=== PATIENT | female | born 1945 | race Caucasian/White ===

== ENCOUNTER 2020-02-04 13:26 | Day surgery (SDC) | payer MEDICARE, OTHER ==
[2020-02-02 10:15] VITALS: BMI 31.2
[2020-02-04] MEDS ORDERED: PROPOFOL 20 ML ONE (14:24)
[2020-02-04] MEDS ORDERED: ROPIVACAINE HCL 0.5% 30ML VIAL ONE (14:50)
[2020-02-04] MEDS ORDERED: MIDAZOLAM HCL 2 MG/2 ML SINGLE DOSE VIAL ONE (14:50)
[2020-02-04] MEDS ORDERED: ceFAZolin SODIUM 1 GM VIAL ONE (15:31)
[2020-02-04] MEDS ORDERED: ONDANSETRON 4 MG/2 ML VIAL ONE (17:27)
[2020-02-04] MEDS ORDERED: ONDANSETRON 4 MG/2 ML VIAL IVPUSH PRN (17:38)
[2020-02-04] MEDS ORDERED: oxyCODONE HCL 5 MG TABLET PO PRN (17:38)
[2020-02-04 17:59] VITALS: TEMP 97.6
[2020-02-04 18:33] VITALS: BP 116/67; PULSE 74
== END 2020-02-04 18:33 | disposition home or self-care (01) ==
LOC: FASU 13:26
PROVIDERS: ATTEND Orthopaedic Surgery Hand Surgery
PROC: 0PSL04Z Reposition Left Ulna with Internal Fixation Device, Open Approach (ICD-10-PCS; 2020-02-04)
PROC: 0PSJ04Z Reposition Left Radius with Internal Fixation Device, Open Approach (ICD-10-PCS; principal; 2020-02-04 15:42)
DX: S52.232A Displaced oblique fracture of shaft of left ulna, initial encounter for closed fracture (principal); S52.332A Displaced oblique fracture of shaft of left radius, initial encounter for closed fracture; X58.XXXA Exposure to other specified factors, initial encounter; Y93.9 Activity, unspecified; Y92.9 Unspecified place or not applicable; E11.9 Type 2 diabetes mellitus without complications; I10 Essential (primary) hypertension; E03.9 Hypothyroidism, unspecified; G47.30 Sleep apnea, unspecified; Z95.0 Presence of cardiac pacemaker; Z79.84 Long term (current) use of oral hypoglycemic drugs
CPT/HCPCS: 25575; C1713; 73110-TC-LT-FY; 82962; 94760

== ENCOUNTER → 2022-07-17 | Emergency (ER) | payer MEDICARE, OTHER ==
[~2022-07-17] MED LIST: DIPHTH,PERTUSS(ACELL),TET 0.5 ML DISP.SYRIN IM ONE; LIDOCAINE 5% TOPICAL PATCH ONE; LIDOCAINE 5% TOPICAL PATCH TP ONE; LIDOCAINE PATCH REMOVAL MC SCH
[2022-07-17 16:24] VITALS: BP 167/86; PULSE 69; RESP 18; TEMP 98; BMI 29.2
== END | disposition home or self-care (01) ==
LOC: JER 15:59
DX: S42.002A Fracture of unspecified part of left clavicle, initial encounter for closed fracture (principal); S00.82XA Blister (nonthermal) of other part of head, initial encounter; M25.512 Pain in left shoulder; M25.562 Pain in left knee; W17.82XA Fall from (out of) grocery cart, initial encounter; W22.8XXA Striking against or struck by other objects, initial encounter
CPT/HCPCS: 70450-TC; 70486-TC; 71045-TC-FY; 72125-TC; 72170-TC-FY; 73030-TC-LT-FY; 73030-TC-RT-FY; 73060-TC-LT-FY; 73110-TC-LT-FY; 73562-TC-LT-FY; 73590-TC-LT-FY; 99284-25

== ENCOUNTER 2024-06-10 10:39 | Emergency (ER) | payer MEDICARE, OTHER ==
[2024-06-10 10:54] VITALS: RESP 16; BMI 30.4
[2024-06-10 13:56] VITALS: BP 125/58; PULSE 60; TEMP 98.3
== END 2024-06-10 17:05 | disposition home or self-care (01) ==
LOC: JER 10:39
DX: R26.81 Unsteadiness on feet (principal); M79.10 Myalgia, unspecified site; W01.0XXA Fall on same level from slipping, tripping and stumbling without subsequent striking against object, initial encounter
CPT/HCPCS: 70450-TC; 72125-TC; 73590-TC-RT-FY; 93005; 93010; 99284-25